=== PATIENT | male | born 1990 | race Caucasian/White ===

== ENCOUNTER 2020-07-11 01:35 | Emergency (ER) | payer SELFPAY ==
[~2020-07-11] VITALS: Ht 157.5 cm; Wt 59.0 kg
[2020-07-11] MEDS ORDERED: MORPHINE SULFATE 4 MG/ML CPJ (NOT FOR IM USE) IV ONE (02:45)
[2020-07-11] MEDS ORDERED: PROPOFOL 200MG/20ML VIAL IV ONE (02:45)
[2020-07-11] MEDS ORDERED: ONDANSETRON HCL 4MG/2ML INJ IV ONE (02:45)
[2020-07-11] MEDS ORDERED: IBUP-2028 MT (04:40)
[2020-07-11 04:43] VITALS: BP 112/60
== END 2020-07-11 05:29 | disposition home or self-care (01) ==
LOC: ER 01:35
DX: S43.085A Other dislocation of left shoulder joint, initial encounter (principal); W01.0XXA Fall on same level from slipping, tripping and stumbling without subsequent striking against object, initial encounter; Y93.89 Activity, other specified; Y92.89 Other specified places as the place of occurrence of the external cause
CPT/HCPCS: 23650; 73030; 93005; 96374; 96375; 99152; 99285; J2270; J2405; J2704